=== PATIENT | male | born 1995 | race Native Hawaiian/Other Pacific Islander ===

== ENCOUNTER 2022-04-16 09:29 | Outpatient (CLI) | payer BC | END 2022-04-16 19:52 | disposition home or self-care (01) | LOC: MRI 09:29 | PROVIDERS: ATTEND Student in an Organized Health Care Education/Training Program | DX: M25.512 Pain in left shoulder (principal); I10 Essential (primary) hypertension; G47.00 Insomnia, unspecified ==

== ENCOUNTER 2022-06-25 11:08 | Outpatient (CLI) | payer BC | END 2022-06-25 19:16 | disposition home or self-care (01) | LOC: RESP 11:08 | PROVIDERS: ATTEND Orthopaedic Surgery | DX: Z01.818 Encounter for other preprocedural examination (principal); I10 Essential (primary) hypertension; Z86.16 Personal history of COVID-19; F32.9 Major depressive disorder, single episode, unspecified; Z09 Encounter for follow-up examination after completed treatment for conditions other than malignant neoplasm | CPT/HCPCS: 93005 ==